=== PATIENT | male | born 1960 | race Caucasian/White ===

== ENCOUNTER → 2018-04-08 | Day surgery (SDC) | payer OTHER ==
[~2018-04-08] MED LIST: ASPI81TA50 PO; CYAN-25 PO; HYDR200T5 PO; IV RINGERS,LACTATED 1000ML 1,000 ML IV SCH; LIDOCAINE 1% PF 2 ML VIAL. ID PRN; LOSA-73 PO; MELA3TAB2 PO; MIDAZOLAM HCL/PF 2 MG/2 ML VIAL. IV PRN; OMEP20CA10 PO; PROPOFOL 40 ML IV ONE; SIMV10TA3 PO; TAMS0.4C2 PO; fentaNYL PF VIAL 100 MCG/2 ML VIAL IV PRN
[2018-04-08 08:43] VITALS: BP 164/79
--- NOTE | 2018-04-08 13:26 | CONS ---
DATE OF CONSULTATION: 04/08/2018 REASON FOR CONSULTATION: Colorectal screening. HISTORY OF PRESENT ILLNESS: A 58-year-old male with past medical history significant for pernicious anemia, hypertension, hyperlipidemia, BPH, history of esophageal reflux disease, status post appendectomy, is seen for colonoscopy. His colonoscopy 10 years ago was unrevealing for polyps or cancers. Bowel habits have been regular without diarrhea or constipation. There has been no melena and/or hematochezia. Weight and appetite are stable. He is otherwise without additional complaints. PAST MEDICAL HISTORY: Pernicious anemia, arthritis, hypertension, gastroesophageal reflux disease, hyperlipidemia, BPH. ALLERGIES: None. MEDICATIONS: Include aspirin, vitamin B12, hydroxychloroquine, losartan, melatonin, omeprazole, simvastatin and tamsulosin. FAMILY AND SOCIAL HISTORY: Significant for prostate cancer with his father and grandfather. He is a former smoker, former drinker. REVIEW OF SYSTEMS: Per records. PHYSICAL EXAMINATION: GENERAL: Reveals a well-nourished, well-developed male. VITAL SIGNS: Temperature 97.6, pulse 70, respiration rate 16. HEENT: Normocephalic and atraumatic. Pupils and extraocular muscles are not tested. Sclerae are anicteric. NECK: Supple. LUNGS: Clear. CARDIOVASCULAR: Reveals an S1, S2 without S3, S4 or appreciable murmur. ABDOMEN: Soft abdomen, normal bowel sounds. No appreciable hepatosplenomegaly. EXTREMITIES: Reveal no cyanosis, clubbing or edema. IMPRESSION: Colorectal screening is warranted at this time. Risks and benefits have been discussed with the patient including risk of hemorrhage and perforation, he is willing to proceed. I would like to thank Rashida De Leon for allowing us to consult and participate in this patient's care. OCTAVIO DALTON MD DR: ANISA/virgil JOB#: [id number] / [id number] Rashida Mckoy
== END | disposition home or self-care (01) ==
LOC: SURG 06:10
PROVIDERS: ATTEND Internal Medicine Gastroenterology
DX: Z12.11 Encounter for screening for malignant neoplasm of colon (principal); K57.30 Diverticulosis of large intestine without perforation or abscess without bleeding; K64.0 First degree hemorrhoids; I10 Essential (primary) hypertension; M19.90 Unspecified osteoarthritis, unspecified site; E78.5 Hyperlipidemia, unspecified; N40.0 Benign prostatic hyperplasia without lower urinary tract symptoms; K21.9 Gastro-esophageal reflux disease without esophagitis; D51.0 Vitamin B12 deficiency anemia due to intrinsic factor deficiency; Z79.82 Long term (current) use of aspirin; Z79.899 Other long term (current) drug therapy; Z80.42 Family history of malignant neoplasm of prostate; Z87.891 Personal history of nicotine dependence; Z72.89 Other problems related to lifestyle; Z90.49 Acquired absence of other specified parts of digestive tract
CPT/HCPCS: 45378; J2704